=== PATIENT | female | born 1960 | race American Indian/Alaskan Native ===

== ENCOUNTER 2020-11-25 15:58 | Emergency (ER) | payer SELFPAY ==
[2020-11-25 17:01] VITALS: BP 152/80
[2020-11-25] MEDS ORDERED: traMADol 50 MG TAB PO ONE (19:09)
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
[2020-11-25] MEDS ORDERED: NAPROXEN 500 MG TAB PO ONE (19:49)
== END 2020-11-25 20:57 | disposition home or self-care (01) ==
LOC: ED 15:58
DX: M79.18 Myalgia, other site (principal); I10 Essential (primary) hypertension; E11.9 Type 2 diabetes mellitus without complications; Z98.890 Other specified postprocedural states; Z79.899 Other long term (current) drug therapy; Z88.8 Allergy status to other drugs, medicaments and biological substances; V49.49XA Driver injured in collision with other motor vehicles in traffic accident, initial encounter; Y92.410 Unspecified street and highway as the place of occurrence of the external cause; Y93.89 Activity, other specified; Y99.8 Other external cause status